=== PATIENT | male | born 1980 | race Caucasian/White ===

== ENCOUNTER 2017-12-30 11:47 | Emergency (ER) | payer OTHER ==
[~2017-12-30] VITALS: Ht 182.9 cm; Wt 97.5 kg
[~2017-12-30 11:47] MED LIST: ASPIRIN81 M1 PO; FLEXERIL10 MG PO; HYDROCODON-ACE1 EAC7 PO; Halfprin PO; Keflex PO; LITE COAT ASPI325 M1 PO; LO-DOSE ASPIRIN81 M1 PO; LOPRESSOR25 MG PO; LYRICA75 MG PO; METOPROLOL TART25 MG PO; MOBIC15 MG PO; MULTIPLE VITAM1 EACH PO; NAPROSYN500 MG PO; NEURONTIN300 MG PO; NEXIUM 24HR20 M1 PO; NORCO 5/3251 TABLET PO; RANITIDINE HCL150 MG PO; Vicodin,Norco 5/325 PO; [UNRECOGNIZED DRUG - REMARK] PO; [UNRECOGNIZED DRUG - REMARK] PO
[2017-12-30] MEDS ORDERED: ATIVAN2 MG PO (13:46)
[2017-12-30 14:53] VITALS: BP 131/99
== END 2017-12-30 14:55 | disposition home or self-care (01) ==
LOC: EME 11:47
DX: F10.239 Alcohol dependence with withdrawal, unspecified (principal); G89.29 Other chronic pain; F17.200 Nicotine dependence, unspecified, uncomplicated; Z85.9 Personal history of malignant neoplasm, unspecified
CPT/HCPCS: 99281; 99284; J0780; J2060